=== PATIENT | male | born 1990 | race Hispanic/Latino ===

== ENCOUNTER → 2024-03-27 07:21 | Outpatient (REF) | payer OTHER, SELFPAY ==
[2024-03-27 10:17] LABS: Glycohemoglobin (HgbA1c) 5.5 % (4.0-5.6)
== END ==
LOC: CLINIC 07:21
PROVIDERS: ATTENDING PHYSICIAN Nurse Practitioner Adult Health
DX: R73.03 Prediabetes (principal)
CPT/HCPCS: 83036

== ENCOUNTER → 2024-03-29 16:29 | Outpatient (REF) | payer OTHER, SELFPAY | LOC: CLINIC 16:29 | PROVIDERS: ATTENDING PHYSICIAN Nurse Practitioner Adult Health | DX: M25.511 Pain in right shoulder (principal) | CPT/HCPCS: 73030 ==